=== PATIENT | male | born 2000 | race Caucasian/White ===

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

== ENCOUNTER 2019-03-10 13:40 | Emergency (ER) | payer BC ==
[2019-03-10 14:01] VITALS: BP 112/40
--- NOTE | 2019-03-10 14:39 | UC ---
Lower Extremity/Ankle HPI - HPI Summary HPI Summary: 18 yo male injured his left great toe playing soccer has to stop playing due to pain hurts to bear wt no hx prior injury - History of Current Complaint Chief Complaint: UCLowerExtremity Stated Complaint: LT GREAT TOE INJ Time Seen by Provider: 03/10/19 14:25 Hx Obtained From: Patient Onset/Duration: Sudden Onset, Lasting Hours Severity Initially: Moderate Severity Currently: Mild Pain Intensity: 2 - worse with wt bearing Pain Scale Used: 0-10 Numeric Aggravating Factor(s): Standing, Ambulation Alleviating Factor(s): Rest Able to Bear Weight: Yes Feet (Multiple View): 1 - pain/swelling - Allergies/Home Medications Allergies/Adverse Reactions: Allergies Allergy/AdvReac Type Severity Reaction Status Date / Time No Known Allergies Allergy Verified 03/10/19 14:07 Home Medications: Home Medications Loratadine [Claritin] 10 mg PO DAILY 03/10/19 [History Confirmed 03/10/19] PMH/Surg Hx/FS Hx/Imm Hx Previously Healthy: Yes - Surgical History Surgical History: Yes Surgery Procedure, Year, and Place: Age 4-5 yrs diverticulum ON BLADDER - Family History Known Family History: Positive: Other - [place] in grand parents, Non-Contributory - Social History Alcohol Use: Weekly Substance Use Type: None Smoking Status (MU): Never Smoked Tobacco - Immunization History Vaccination Up to Date: Yes Review of Systems All Other Systems Reviewed And Are Negative: Yes Constitutional: Positive: Negative Skin: Positive: Negative Eyes: Positive: Negative ENT: Positive: Negative Respiratory: Positive: Negative Cardiovascular: Positive: Negative Gastrointestinal: Positive: Negative Genitourinary: Positive: Negative Motor: Positive: Negative Neurovascular: Positive: Negative Musculoskeletal: Positive: Arthralgia - left great toe Neurological: Positive: Negative Psychological: Positive: Negative Physical Exam Triage Information Reviewed: Yes Appearance: Well-Appearing, No Pain Distress, Well-Nourished Vital Signs: Initial Vital Signs Temp 98.6 F 03/10/19 13:56 Pulse 60 03/10/19 13:56 Resp 16 03/10/19 13:56 BP 112/40 03/10/19 13:56 Pulse Ox 100 03/10/19 13:56 Vital Signs Reviewed: Yes Eyes: Positive: Conjunctiva Clear ENT: Positive: Hearing grossly normal. Negative: Nasal congestion, Nasal drainage, Trismus, Muffled voice, Hoarse voice Dental Exam: Normal Neck: Positive: Supple Respiratory: Positive: Lungs clear, Normal breath sounds, No respiratory distress, No accessory muscle use Cardiovascular: Positive: RRR Musculoskeletal: Positive: ROM Limited @ - left great toe, Edema @ - left great toe Neurological: Positive: Alert Psychological Exam: Normal Skin Exam: Normal Diagnostics - Radiology No standard instances Radiology Interpretation Completed By: Radiologist Summary of Radiographic Findings: no fx Lower Extremity Course/Dx - Differential Dx/Diagnosis Provider Diagnosis: Sprain of left great toe Discharge - Sign-Out/Discharge Documenting (check all that apply): Patient Departure All imaging exams completed and their final reports reviewed: Yes - Discharge Plan Condition: Stable Disposition: HOME Patient Education Materials: Sprain (ED), Post Surgical Shoe (ED) Referrals: Breonna Melo PA [Primary Care Provider] - 2 Weeks (if not better) Additional Instructions: aleve or advil - Billing Disposition and Condition Condition: STABLE Disposition: Home
== END 2019-03-10 15:07 | disposition home or self-care (01) ==
LOC: UCCORT 13:40
DX: S93.502A Unspecified sprain of left great toe, initial encounter (principal); X58.XXXA Exposure to other specified factors, initial encounter; Y93.66 Activity, soccer; Y92.322 Soccer field as the place of occurrence of the external cause
CPT/HCPCS: 99212; G0463